=== PATIENT | male | born 1990 | race Caucasian/White ===

== ENCOUNTER 2017-02-14 19:16 | Emergency (ER) | payer OTHER ==
[2017-02-14] MEDS ORDERED: AMOXICILLIN500 M1 (19:30)
[2017-02-14] MEDS ORDERED: ZYRTEC10 M7 PO (19:30)
[2017-02-14] MEDS ORDERED: KEFLEX500 M4 PO (19:54)
[2017-02-14] MEDS ORDERED: NORCO 5-325 TA1 EACH PO (19:54)
== END 2017-02-14 19:58 ==
LOC: EDMED 19:16
DX: K11.20 Sialoadenitis, unspecified (principal)